=== PATIENT | female | born 1965 | race Caucasian/White ===

== ENCOUNTER 2017-07-18 16:59 | Emergency (ER) | payer MEDICAID ==
[2017-07-18 18:10] VITALS: BP 137/77
--- NOTE | 2017-07-18 18:35 | EDM.PDOC ---
ED HPI GENERAL MEDICAL PROBLEM - General Chief Complaint: ENT Problem Stated Complaint: SORE THROAT/TIGHT CHEST Time Seen by Provider: 07/18/17 18:20 Source of Information: Reports: Patient History Limitations: Reports: No Limitations - History of Present Illness INITIAL COMMENTS - FREE TEXT/NARRATIVE: History of present illness: [51-year-old female presenting with productive cough right ear pain and right tonsillar swelling without fever. She admits to being a smoker but is trying to cut back this time. No shortness of breath or chest pain] Review of systems: As per history of present illness and below otherwise all systems reviewed and negative. Past medical history: As per history of present illness and as reviewed below otherwise noncontributory. Surgical history: As per history of present illness and as reviewed below otherwise noncontributory. Social history: No reported history of drug or alcohol abuse. Family history: As per history of present illness and as reviewed below otherwise noncontributory. Physical exam: HEENT: Atraumatic, normocephalic, pupils reactive she does have some posterior nasal drainage and also tenderness to palpation and percussion of the right maxillary sinus Lungs: Clear to auscultation, breath sounds equal bilaterally Heart: S1S2, regular, negative for clicks, rubs, or JVD. Abdomen: Soft, nondistended, nontender. Negative for masses or hepatosplenomegaly. Pelvis: Stable nontender. Genitourinary: Deferred. Rectal: Deferred. Extremities: Atraumatic, negative for cords or calf pain. Neurovascular unremarkable. Neuro: Awake, alert, oriented. Diagnostics: [] Therapeutics: [] Impression: [Right serous otitis Sinusitis Bronchitis] Plan: [She is provided with a Z-Graham she states has helped her in the past. Follow-up in the clinic in 3-4 days if not improving] Definitive disposition and diagnosis as appropriate pending reevaluation and review of above. body aches Pain Score (Numeric/FACES): 5 - Related Data Allergies Allergy/AdvReac Type Severity Reaction Status Date / Time No Known Allergies Allergy Verified 08/24/14 17:32 Home Meds: Home Meds Levothyroxine 112 mcg PO DAILY 07/18/17 [History] Past Medical History [employer] History: Reports: Endocrine/Metabolic History: Reports: Hypothyroidism - Past Surgical History GI Surgical History: Reports: Appendectomy, Cholecystectomy Musculoskeletal Surgical History: Reports: Other (See Below) Other Musculoskeletal Surgeries/Procedures:: tail bone removed Social & Family History - Tobacco Use Smoking Status *Q: Current Every Day Smoker Years of Tobacco use: 33 Packs/Tins Daily: 1 Second Hand Smoke Exposure: No - Alcohol Use Days Per Week of Alcohol Use: 0 - Recreational Drug Use Recreational Drug Use: No ED ROS GENERAL - Review of Systems Review Of Systems: ROS reveals no pertinent complaints other than HPI. ED EXAM, GENERAL - Physical Exam Exam: See Below Course - Vital Signs Last Recorded V/S: Last Vital Signs Temp 36.9 C 07/18/17 18:09 Pulse 83 07/18/17 18:09 Resp 19 07/18/17 18:09 BP 137/77 07/18/17 18:09 Pulse Ox 97 07/18/17 18:09 Departure - Departure Time of Disposition: 18:30 Disposition: Home, Self-Care 01 Condition: Good Clinical Impression: Bronchitis Serous otitis media Qualifiers: Chronicity: acute Laterality: right Recurrence: not specified as recurrent Qualified Code(s): H65.01 - Acute serous otitis media, right ear Sinusitis Qualifiers: Sinusitis location: maxillary Chronicity: acute Recurrence: non-recurrent Qualified Code(s): J01.00 - Acute maxillary sinusitis, unspecified - Discharge Information Referrals: PCP,None [Primary Care Provider] - Additional Instructions: Were providing you with a Z-Graham which views before successfully. If in 3-4 days if not improved up and recommend that you follow-up in the clinic. As we discussed he might be a good time for you to quit smoking altogether and you can discuss this with your primary care provider as there are medications that can help with this.
== END 2017-07-18 18:52 | disposition home or self-care (01) ==
LOC: JP.ED 16:59
DX: J40 Bronchitis, not specified as acute or chronic (principal); H65.01 Acute serous otitis media, right ear; J32.9 Chronic sinusitis, unspecified; F17.210 Nicotine dependence, cigarettes, uncomplicated; E03.9 Hypothyroidism, unspecified; Z90.49 Acquired absence of other specified parts of digestive tract
CPT/HCPCS: 99283